=== PATIENT | female | born 1985 | race Caucasian/White ===

== ENCOUNTER 2017-09-03 11:13 | Emergency (ER) | payer SELFPAY ==
[2017-09-03 11:32] VITALS: BP 112/73
--- NOTE | 2017-09-03 11:46 | UC ---
Skin Complaint HPI - HPI Summary HPI Summary: The patient is a 32-year-old female removed attention from her abdomen this a.m. She had been out doors most of the weekend. She removed the tick herself using her fingers - History of Current Complaint Chief Complaint: UCSkin Time Seen by Provider: 09/03/17 11:31 Stated Complaint: SKIN COMPLAINT Hx Obtained From: Patient Hx Last Menstrual Period: 01-02-14 Onset Severity: Mild Current Severity: None Pain Intensity: 0 Aggravating Factor(s): Nothing Alleviating Factor(s): Nothing Related History: Insect Bite/Sting - Allergy/Home Medications Allergies/Adverse Reactions: Allergies Allergy/AdvReac Type Severity Reaction Status Date / Time No Known Allergies Allergy Verified 09/03/17 11:26 Review of Systems Constitutional: Negative Skin: Negative Eyes: Negative ENT: Negative Respiratory: Negative Cardiovascular: Negative Gastrointestinal: Negative Genitourinary: Negative Motor: Negative Neurovascular: Negative Musculoskeletal: Negative Neurological: Negative Psychological: Negative Is Patient Immunocompromised?: No All Other Systems Reviewed And Are Negative: Yes PMH/Surg Hx/FS Hx/Imm Hx Previously Healthy: Yes - Surgical History Surgical History: Yes Surgery Procedure, Year, and Place: 06/2006 - Family History Known Family History: Positive: Hypertension - Social History Alcohol Use: Weekly Substance Use Type: None Smoking Status (MU): Former Smoker Physical Exam Triage Information Reviewed: Yes Appearance: Well-Appearing, No Pain Distress, Well-Nourished Vital Signs: Initial Vital Signs Temp 100 F 09/03/17 11:26 Pulse 66 09/03/17 11:26 Resp 13 09/03/17 11:26 BP 112/73 09/03/17 11:26 Pulse Ox 99 09/03/17 11:26 Vital Signs Reviewed: Yes Eyes: Positive: Conjunctiva Clear ENT: Positive: Hearing grossly normal. Negative: Nasal congestion, Nasal drainage, Trismus, Muffled voice, Hoarse voice Neck: Positive: Supple, Nontender, No Lymphadenopathy Respiratory: Positive: Lungs clear, Normal breath sounds, No respiratory distress, No accessory muscle use Cardiovascular: Positive: RRR, No Murmur Musculoskeletal: Positive: ROM Intact, No Edema Neurological: Positive: Alert Psychological Exam: Normal Skin Exam: Other - tick available for me to examine/slightly engorged/removed in toto no erthyema at bite site Course/Dx - Diagnoses Provider Diagnoses: tick bite. lyme disease prophylaxis Discharge - Sign-Out/Discharge Documenting (check all that apply): Discharge/Admit/Transfer - Discharge Plan Condition: Stable Disposition: HOME Prescriptions: DOXYcycline CAP(*) [DOXYcycline 100MG CAP(*)] 200 mg PO DAILY #2 cap Patient Education Materials: Tick Bite (ED) Referrals: No Primary Care Phys,NOPCP [Primary Care Provider] - Additional Instructions: call for any questions return for any problems - Billing Disposition and Condition Condition: STABLE Disposition: Home
== END 2017-09-03 11:51 | disposition home or self-care (01) ==
LOC: UCCORT 11:13
DX: S30.861A Insect bite (nonvenomous) of abdominal wall, initial encounter (principal); W57.XXXA Bitten or stung by nonvenomous insect and other nonvenomous arthropods, initial encounter; Y93.9 Activity, unspecified; Y92.9 Unspecified place or not applicable; Z79.899 Other long term (current) drug therapy; Z87.891 Personal history of nicotine dependence
CPT/HCPCS: 99212; G0463

== ENCOUNTER 2018-05-07 15:28 | Emergency (ER) | payer BC ==
[2018-05-07 16:13] VITALS: BP 116/77
--- NOTE | 2018-05-07 17:13 | UC ---
Respiratory Complaint HPI - HPI Summary HPI Summary: 33 yo female with sore throat/rare cough/fever/chills/headache and myalgias that started this AM no nasal congestion no CP or SOB no n/v/d - History of Current Complaint Chief Complaint: UCGeneralIllness Stated Complaint: BODY ACHES,FEVER,CHILLS Time Seen by Provider: 05/07/18 17:06 Hx Obtained From: Patient Hx Last Menstrual Period: 04/08/18 Onset/Duration: Gradual Onset, Lasting Hours Timing: Constant Severity Initially: Mild Severity Currently: Moderate Pain Intensity: 3 Pain Scale Used: 0-10 Numeric Character: Cough: Nonproductive Aggravating Factors: Other Associated Signs And Symptoms: Positive: Fever, Chills - Allergies/Home Medications Allergies/Adverse Reactions: Allergies Allergy/AdvReac Type Severity Reaction Status Date / Time No Known Allergies Allergy Verified 05/07/18 16:13 Home Medications: Home Medications NK [No Home Medications Reported] 05/07/18 [History Confirmed 05/07/18] PMH/Surg Hx/FS Hx/Imm Hx Previously Healthy: Yes - Surgical History Surgical History: Yes Surgery Procedure, Year, and Place: 06/2006. breast cyst aspiration - Family History Known Family History: Positive: Hypertension - Social History Alcohol Use: Weekly Alcohol Amount: a few times a week Substance Use Type: None Smoking Status (MU): Former Smoker Review of Systems All Other Systems Reviewed And Are Negative: Yes Constitutional: Positive: Fever, Chills, Fatigue Skin: Positive: Negative Eyes: Positive: Negative ENT: Positive: Sore Throat Respiratory: Positive: Cough Cardiovascular: Positive: Negative Gastrointestinal: Positive: Negative Genitourinary: Positive: Negative Motor: Positive: Negative Neurovascular: Positive: Negative Musculoskeletal: Positive: Negative Neurological: Positive: Headache, Weakness Psychological: Positive: Negative Physical Exam Triage Information Reviewed: Yes Appearance: Well-Appearing, No Pain Distress, Well-Nourished Vital Signs: Initial Vital Signs Temp 100.7 F 05/07/18 16:06 Pulse 76 05/07/18 16:06 Resp 16 05/07/18 16:06 BP 116/77 05/07/18 16:06 Pulse Ox 100 05/07/18 16:06 Vital Signs Reviewed: Yes Eyes: Positive: Conjunctiva Clear ENT: Positive: Hearing grossly normal, Pharyngeal erythema, TMs normal, Uvula midline. Negative: Nasal congestion, Nasal drainage, Tonsillar swelling, Tonsillar exudate, Trismus, Muffled voice, Hoarse voice, Sinus tenderness Neck: Positive: Supple, Enlarged Nodes @ - tender ant cerv LNs Respiratory: Positive: Lungs clear, Normal breath sounds, No respiratory distress Cardiovascular: Positive: RRR, No Murmur Musculoskeletal: Positive: ROM Intact, No Edema Neurological: Positive: Alert Psychological Exam: Normal Skin Exam: Normal UC Diagnostic Evaluation - Laboratory O2 Sat by Pulse Oximetry: 100 - normal/not hypoxic Diagnostic Studies Comment: influenza (-), strep (-) Respiratory Course/Dx - Differential Dx/Diagnosis Provider Diagnosis: Viral URI, Pharyngitis Discharge - Sign-Out/Discharge Documenting (check all that apply): Patient Departure All imaging exams completed and their final reports reviewed: No Studies - Discharge Plan Condition: Stable Disposition: HOME Patient Education Materials: Upper Respiratory Infection (ED) Referrals: Ata Miller MD [Primary Care Provider] - Additional Instructions: rest fluids tylenol or advil recheck in 3-4 days if not better recheck sooner for new or worsening symptoms - Billing Disposition and Condition Condition: STABLE Disposition: Home
[2018-05-07 17:16] LABS: Influenza A Molecular NEGATIVE (Negative); Influenza B Molecular NEGATIVE (Negative)
== END 2018-05-07 17:52 | disposition home or self-care (01) ==
LOC: UCCORT 15:28
DX: J06.9 Acute upper respiratory infection, unspecified (principal); J02.9 Acute pharyngitis, unspecified; Z87.891 Personal history of nicotine dependence
CPT/HCPCS: 87651; 99211; G0463